=== PATIENT | female | born 1965 | race Caucasian/White ===

== ENCOUNTER 2016-06-16 16:51 | Emergency (ER) | payer OTHER ==
[~2016-06-16] VITALS: Ht 160 cm; Wt 90.7 kg
[~2016-06-16 16:51] MED LIST: MIRALAX17 GM PO; ULTRAM(MONOGRAP50 MG PO
[2016-06-16 17:03] VITALS: BP 139/85
== END 2016-06-16 18:07 | disposition admitted as inpatient to this hospital (09) ==
LOC: ERH 16:51
DX: H92.03 Otalgia, bilateral (principal); R11.2 Nausea with vomiting, unspecified

== ENCOUNTER 2017-09-07 13:29 | Emergency (ER) | payer OTHER ==
[~2017-09-07] VITALS: Ht 157.5 cm; Wt 90.7 kg
[2017-09-07 13:33] VITALS: BP 131/65
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
[2017-09-07] MEDS ORDERED: IBUPROFEN800 M1 PO (14:48)
[2017-09-07] MEDS ORDERED: HYDROCODON-ACE1 EAC2 PO (14:48)
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
== END 2017-09-07 15:00 ==
LOC: ERH 13:29
DX: S42.401A Unspecified fracture of lower end of right humerus, initial encounter for closed fracture (principal); W01.0XXA Fall on same level from slipping, tripping and stumbling without subsequent striking against object, initial encounter; Y92.9 Unspecified place or not applicable; Y93.9 Activity, unspecified
CPT/HCPCS: 73080-RT